=== PATIENT | female | born 1945 | race Caucasian/White ===

== ENCOUNTER 2017-12-22 12:41 | Emergency (ER) | payer MEDICARE, OTHER ==
[~2017-12-22] VITALS: Ht 152.4 cm; Wt 60.8 kg
[~2017-12-22 12:41] MED LIST: ATEN25TA PO; ROSU40TA PO; VALS320T2 PO
[2017-12-22 13:00] VITALS: BP 159/87
[2017-12-22] MEDS ORDERED: MUPIROCIN OINT 2% 22 GM TUBE TP ONE (14:00)
[2017-12-22] MEDS ORDERED: MUPIROCIN OINT 2% 22 GM TUBE ONE (14:06)
== END 2017-12-22 14:32 | disposition home or self-care (01) ==
LOC: ER 12:43
DX: S10.96XA Insect bite of unspecified part of neck, initial encounter (principal); L08.9 Local infection of the skin and subcutaneous tissue, unspecified; I10 Essential (primary) hypertension; E78.00 Pure hypercholesterolemia, unspecified; Z88.0 Allergy status to penicillin; W57.XXXA Bitten or stung by nonvenomous insect and other nonvenomous arthropods, initial encounter; Y93.89 Activity, other specified; Y92.89 Other specified places as the place of occurrence of the external cause; Y99.8 Other external cause status
CPT/HCPCS: A4606; Z7610

== ENCOUNTER 2018-07-09 13:08 | Inpatient (IN) | payer MEDICARE, OTHER ==
[~2018-07-09] VITALS: Ht 149.9 cm; Wt 53.5 kg
--- NOTE | 2018-07-09 13:17 | NUR ---
PT BIB SELF CHEST PAIN X 18 HRS NON RADIATING , NON PROVOKED SHARP, PT IS AAOX4, NOT IN RESPIRATORY DISTRESS, V/S STABLE, HOOKED TO MONITOR, KEPT RESTED AND COMFORTABLE.
--- NOTE | 2018-07-09 13:20 | NUR ---
PT LABS DRAWNED AND SENT TO LAB, EKG DONE.
--- NOTE | 2018-07-09 13:43 | NUR ---
RADIOLOGY AT BEDSIDE FOR XRAY.
[2018-07-09 13:48] LABS: BASOPHILS # (AUTO) 0.1 /CMM (0.0-0.2); BASOPHILS % (AUTO) 1.2 % (0.0-2.0); EOSINOPHILS % (AUTO) 2.4 % (0.0-6.0); HEMATOCRIT 41 % (33-45); LYMPHOCYTES # (AUTO) 1.7 /CMM (0.8-4.8); LYMPHOCYTES % (AUTO) 27.4 % (20.0-44.0); MEAN CORPUSCULAR HGB CONC 34 g/dl (31.0-36.0); MEAN CORPUSCULAR VOLUME 89 fL (82-100); MONOCYTES # (AUTO) 0.5 /CMM (0.1-1.30); NEUTROPHILS # (AUTO) 3.8 /CMM (1.8-8.9); PLATELET COUNT (AUTO) 216 /CMM (150-450); RED BLOOD CELL COUNT(AUTO) 4.62 MIL/uL (4.0-5.2); WHITE BLOOD COUNT (AUTO) 6.2 K/uL (4.3-11.0)
[2018-07-09 13:53] LABS: CALCIUM, SERUM 9.6 mg/dL (8.5-10.1); CARBON DIOXIDE 26 mmol/L (21-32); CHLORIDE 100 mmol/L (98-107); CREATININE 0.7 mg/dL (0.6-1.3); GLUCOSE 147 mg/dL (74-106); POTASSIUM 3.4 mmol/L (3.5-5.1); SODIUM SERUM 139 mmol/L (136-145); UREA NITROGEN, BLOOD 17 mg/dL (7-18)
[2018-07-09] MEDS ORDERED: NITROGLYCERIN 0.4 MG/TAB BOTTLE ONE (14:27)
--- NOTE | 2018-07-09 14:28 | NUR ---
CALLED NURSING SUP FOR TELE BED.
[2018-07-09] MEDS ORDERED: NITROGLYCERIN 0.4 MG/TAB BOTTLE SL ONE (14:30)
--- NOTE | 2018-07-09 14:56 | NUR ---
PT IS ASSIGNED TO #: [id number], DX: CHEST PAIN, AND ACCEPTING MD: DR NESBITT
[2018-07-09] MEDS ORDERED: MAGNESIUM HYDROXIDE 30 ML UDC PO PRN (15:00)
[2018-07-09] MEDS ORDERED: MAG HYDROX/AL HYDROX/SIMETH 30 ML UDC PO PRN (15:00)
[2018-07-09] MEDS ORDERED: ZOLPIDEM TARTRATE 5 MG TABLET PO PRN (15:00)
[2018-07-09] MEDS ORDERED: MORPHINE SULFATE INJ 2 MG/ML DISP.SYRIN IV PRN (15:00)
[2018-07-09] MEDS ORDERED: ACETAMINOPHEN 325 MG TABLET PO PRN (15:00)
[2018-07-09] MEDS ORDERED: HYDROCODONE/APAP 5/325MG 1 EACH TABLET PO PRN (15:00)
[2018-07-09] MEDS ORDERED: ONDANSETRON HCL/PF 4 MG/2 ML VIAL IVP PRN (15:00)
[2018-07-09] MEDS ORDERED: Z GUARD REMEDY 2 OZ OINT TP PRN (15:00)
[2018-07-09] MEDS ORDERED: NITROGLYCERIN 0.4 MG/TAB BOTTLE SL PRN (15:00)
--- NOTE | 2018-07-09 15:08 | NUR ---
REPORT GIVEN TO MARINA GONZALES FOR EMIL.
[2018-07-09] MEDS ORDERED: MORPHINE SULFATE INJ 4 MG/ML DISP.SYRIN IV PRN (15:12)
[2018-07-09 15:45] VITALS: BP 118/63
[2018-07-09 16:00] VITALS: BP 116/63
--- NOTE | 2018-07-09 16:35 | NUR ---
PLUMBING DESIGNER ADMITTING NOTES PATIENT ADMITTED TO UNIT @ 1520 VIA GURNEY ACCOMPANIED BY E.R NURSE LUIS MANUEL RAE. A/O X4. ABLE TO MAKE NEEDS KNOWN WITH NO C/O CHEST PAIN ON ADMISSION. PT IS AMBULATORY WITH DX OF CHEST PAIN. PT ORIENTED TO ROOM AND UNIT. ON ROOM AIR, BREATHING EVEN AND UNLABORED. V/S TAKEN AND RECORDED. HEAD TO TOE ASSESSMENT DONE. SKIN IS INTACT WITH MILD NON-PITTING EDEMA NOTED ON B/L FEET. IV ACCESS PRESENT RAC G# 20 INTACT AND PATENT, FLUSHES WELL. PT WITH CLEAR B/L LUNGS ON AUSCULTATION. ABDOMEN SOFT NON-TENDER AND NON-DISTENDED. PT PLACED ON TELEMONITORING WITH CURRENT READING OF SR WITH HR OF 78, NO C/O CARDIAC DISTRESS VOICED. SAFETY MEASURES INITIATED. BED PLACED IN LOW/LOCKED POSITION WITH SR UP X 2. CALL LIGHT WITHIN EASY REACH OF PT. WILL CONTINUE TO MONITOR PT ACCORDINGLY.
[2018-07-09] MEDS: ATENOLOL 25 MG TABLET PO SCH (16:57)
--- NOTE | 2018-07-09 18:30 | NUR ---
MACHINE PACKER CLOSING NOTES PATIENT IN BED AWAKE AND RESTING AT MODERATE HIGH BACKREST POSITION. A/O X4. ABLE TO MAKE NEEDS KNOWN, NO C/O CHEST PAIN VOICED SINCE ADMISSION. PT IS AMBULATORY AND TOLERATING ROOM AIR WITH NO ACUTE DISTRESS NOTED. ON TELE-MONITORING WITH CURRENT READING OF SINUS RHYTHM AND HR OF 82, NO C/O CARDIAC DISTRESS VOICED. IV ACCESS ON RAC G#20 INTACT AND PATENT, FLUSHES EASILY. ALL SAFETY MEASURES KEPT IN PLACE. BED IN LOW LOCKED POSITION WITH SR UP X2. CALL LIGHT WITHIN REACH. ALL NEEDS AND CARE ATTENDED WELL. WILL ENDORSE TO FILM FLAT INSPECTOR NURSE FOR EMIL.
--- NOTE | 2018-07-09 19:32 | NUR ---
PATIENT SCHEDULER OPENING NOTES: RECEIVED PT ON ROOM AIR AND IS TOLERATING WELL. PT A/OX4. NO SOB NOTED. NO S/S OF DISTRESS. PT ASKING FOR JELLO. PT SITTING UP IN BED. PT ON TELE BOX AND READING SHOWS SR 84. BED KEPT IN LOW, LOCKED POSITION, AND SIDE RAILS X 2UP. WILL CONTINUE TO MONITOR PT. Addendum: 07/09/18 at 1934 by FADI ZHANG RN IV REMAINS INTACT. CURRENTLY H/L.
[2018-07-09 20:00] VITALS: BP 121/64
--- NOTE | 2018-07-09 21:57 | NUR ---
SUPERINTENDENT DISTRIBUTION NOTES: EXPLAINED TO PT THE IMPORTANCE OF TAKING LIPITOR 80MG X3. PT STILL DOES NOT WANT TO TAKE IT. SHE SAID SHE CAN GO A DAY WITHOUT IT.
[2018-07-09] MEDS ORDERED: ATORVASTATIN 40 MG TABLET PO SCH (22:00)
[2018-07-10] VITALS: BP 128/71
[2018-07-10 04:00] VITALS: BP 127/64
--- NOTE | 2018-07-10 06:36 | NUR ---
IN SERVICE EDUCATOR CLOSING NOTES: ALL NEEDS WERE ATTENDED AND ANTICIPATED FOR. PT RESTING IN BED COMFORTABLY. NO SOB NOTED. NO S/S OF DISTRESS. NO COMPLAINTS OF PAIN. IV REMAINS INTACT. HAS BEEN FLUSHED AND IS CURRENTLY H/L. PT ON TELE BOX AND READING SHOWS SR 63. BED KEPT IN LOW, LOCKED POSITION, AND SIDE RAILS X 2UP. WILL ENDORSE TO AM NURSE FOR EMIL.
[2018-07-10 06:56] LABS: BASOPHILS # (AUTO) 0.1 /CMM (0.0-0.2); BASOPHILS % (AUTO) 1.1 % (0.0-2.0); EOSINOPHILS % (AUTO) 3.6 % (0.0-6.0); HEMATOCRIT 41 % (33-45); HEMOGLOBIN 13.9 g/dL (11.5-14.8); LYMPHOCYTES # (AUTO) 1.9 /CMM (0.8-4.8); LYMPHOCYTES % (AUTO) 27.7 % (20.0-44.0); MEAN CORPUSCULAR HGB CONC 34 g/dl (31.0-36.0); MEAN CORPUSCULAR VOLUME 90 fL (82-100); MONOCYTES # (AUTO) 0.6 /CMM (0.1-1.30); MONOCYTES % (AUTO) 9.1 % (2.0-12.0); NEUTROPHILS # (AUTO) 3.9 /CMM (1.8-8.9); NEUTROPHILS % (AUTO) 58.5 % (43.0-81.0); PLATELET COUNT (AUTO) 222 /CMM (150-450); RED BLOOD CELL COUNT(AUTO) 4.54 MIL/uL (4.0-5.2); WHITE BLOOD COUNT (AUTO) 6.7 K/uL (4.3-11.0)
--- NOTE | 2018-07-10 07:06 | NUR ---
FEATHER EDGER NOTES PATIENT IN BED EYES CLOSED, EASI TO AROUSE. RESPOND TO VERBAL AND TACTILE STIMULI. NO FACIAL GRIMACING NOTED. NO ACUTE DISTRESS NOTED. BREATHING UNLABORED. NO SOB NOTED. IV ACCESS PATENT AND INTACT, NO REDNESS OR SWELLING NOTED. SAFETY MEASURES IN PLACE. CALL LIGHT WITHIN REACH. WILL CONTINUE TO MONITOR ACCORDINGLY.
[2018-07-10 07:09] LABS: CALCIUM, SERUM 9.6 mg/dL (8.5-10.1); CARBON DIOXIDE 31 mmol/L (21-32); CHLORIDE 102 mmol/L (98-107); CREATININE 0.7 mg/dL (0.6-1.3); GLUCOSE 145 mg/dL (74-106); MAGNESIUM 2.2 mg/dL (1.8-2.4); PHOSPHORUS 4.4 mg/dL (2.5-4.9); POTASSIUM 3.3 mmol/L (3.5-5.1); SODIUM SERUM 141 mmol/L (136-145); UREA NITROGEN, BLOOD 18 mg/dL (7-18)
[2018-07-10 07:20] LABS: CHOLESTEROL 251 mg/dL (<200); HDL CHOLESTEROL 30 mg/dL (40-60); LDL 174 mg/dL (0-99); THYROID STIMULATING HORMONE 3.329 uIU/mL (0.358-3.74); TRIGLYCERIDES 297 mg/dL (30-150)
[2018-07-10 08:00] VITALS: BP 118/51
[2018-07-10] MEDS ORDERED: VALSARTAN 80 MG TABLET PO SCH (09:00)
[2018-07-10] MEDS ORDERED: ASPIRIN EC 81 MG TABLET.DR PO SCH (09:00)
[2018-07-10 09:57] VITALS: BP 120/54
[2018-07-10] MEDS: ATENOLOL 25 MG TABLET PO SCH (09:57)
[2018-07-10] MEDS ORDERED: POTASSIUM CHLORIDE 20 MEQ TAB.PRT.SR PO SCH (10:30)
[2018-07-10] MEDS ORDERED: EZETIMIBE 10 MG TABLET PO SCH (11:13)
--- NOTE | 2018-07-10 13:26 | NUR ---
MS RN NOTES SEEN AND EVALUATED BY DR NBA NESBITT WITH NEW ORDERS MADE, NOTED AND CARRIED OUT.
[2018-07-10] MEDS ORDERED: EZET10TA13 PO (13:27)
[2018-07-10] MEDS ORDERED: Nitroglycerin SL (13:27)
--- NOTE | 2018-07-10 15:20 | NUR ---
MS RN NOTES PATIENT DISCHARGE HOME WITH STABLE VITAL SIGNS, NO ACUTE DISTRESS NOTED. BREATHING UNLABORED. DENIED ANY PAIN. DISCHARGE INSTRUCTIONS GIVEN TO THE PATIENT INCLUDING FOLLOW UP WITH PRIMARY DOCTOR AND BENEFITS REPRESENTATIVE IN 1 WEEK, VERBALIZED UNDERSTANDING. ALL BELONGINGS ACCOUNTED FOR. IV ACCESS REMOVED, NO BLEEDING, NO REDNESS OR SWELLING NOTED. SKIN IS INTACT. WHEELED TO THE LOBBY, ASSISTED TO A PRIVATE CAR IN STABLE CONDITION.
== END 2018-07-10 15:15 | disposition home or self-care (01) | DRG 313 ==
LOC: ER 13:09 → TELE 14:59 → MED 07-10 14:26
DX: R07.89 Other chest pain (principal); E87.6 Hypokalemia; E11.9 Type 2 diabetes mellitus without complications; I10 Essential (primary) hypertension; E78.5 Hyperlipidemia, unspecified; F32.9 Major depressive disorder, single episode, unspecified; Z88.0 Allergy status to penicillin
CPT/HCPCS: 36415; 71045-TC; 80048-TC; 80061-TC; 83735-TC; 83880; 84100-TC; 84443-TC; 84484-TC; 85025-TC; 85730-TC; 87081-TC; 93307-TC; G0378

== ENCOUNTER 2018-10-15 12:13 | Emergency (ER) | payer MEDICARE, MEDICAID ==
[~2018-10-15] VITALS: Ht 149.9 cm; Wt 60.3 kg
[~2018-10-15 12:13] MED LIST changes: +EZET10TA13 PO; +Nitroglycerin SL
--- NOTE | 2018-10-15 12:15 | NUR ---
BIB SELF W C/O ABD SHARP PAIN MOSTLY ON THE LLQ, SINCE LAST NIGHT, TO ER BED 3, HOOKED TO MONITOR, CHANGED TO GOWN, PROVIDED W WARM BLANKET, AWAITING MD QUEVEDO.
--- NOTE | 2018-10-15 12:38 | NUR ---
DR JUAREZ AT BEDSIDE
[2018-10-15 12:48] LABS: APPEARANCE,URINE Clear (CLEAR); BILIRUBIN,URINE Negative (NEGATIVE); BLOOD, URINE Negative Ery/uL (NEGATIVE); COLOR,URINE Yellow (YELLOW); KETONES,URINE Negative (NEGATIVE); LEUKOCYTE ESTERASE ,URINE Negative (NEGATIVE); NITRITE, URINE Negative (NEGATIVE); PROTEIN,URINE Negative (NEGATIVE); UGLUCOSE 500 MG/DL mg/dL (NEGATIVE); UROBILINOGEN,URINE 0.2 EU/dL (0.2)
[2018-10-15 12:53] LABS: BASOPHILS % (AUTO) 0.5 % (0.0-2.0); EOSINOPHILS % (AUTO) 0.9 % (0.0-6.0); HEMATOCRIT 38 % (33-45); LYMPHOCYTES # (AUTO) 1.4 /CMM (0.8-4.8); LYMPHOCYTES % (AUTO) 25.5 % (20.0-44.0); MEAN CORPUSCULAR HGB CONC 34 g/dl (31.0-36.0); MEAN CORPUSCULAR VOLUME 89 fL (82-100); MONOCYTES # (AUTO) 0.5 /CMM (0.1-1.30); NEUTROPHILS # (AUTO) 3.5 /CMM (1.8-8.9); NEUTROPHILS % (AUTO) 64.1 % (43.0-81.0); PLATELET COUNT (AUTO) 187 /CMM (150-450); WHITE BLOOD COUNT (AUTO) 5.5 K/uL (4.3-11.0)
[2018-10-15] MEDS ORDERED: IV NS 0.9% 1,000 ML BAG IV ONE (13:00)
[2018-10-15 13:01] LABS: CALCIUM, SERUM 9.3 mg/dL (8.5-10.1); CARBON DIOXIDE 30 mmol/L (21-32); CHLORIDE 104 mmol/L (98-107); CREATININE 0.8 mg/dL (0.6-1.3); GLUCOSE 194 mg/dL (74-106); POTASSIUM 3.3 mmol/L (3.5-5.1); SODIUM SERUM 139 mmol/L (136-145); UREA NITROGEN, BLOOD 19 mg/dL (7-18)
[2018-10-15 13:06] LABS: ALANINE AMINOTRANSFERASE 87 U/L (12-78); ALBUMIN 3.5 g/dL (3.4-5.0); ALKALINE PHOSPHATASE 118 U/L (46-116); ASPARTATE AMINOTRANSFERASE 58 U/L (15-37); BILIRUBIN,DIRECT 0.1 mg/dL (0.0-0.2); BILIRUBIN,TOTAL 0.2 mg/dL (0.2-1.0); LIPASE 324 U/L (73-393); TOTAL PROTEIN, SERUM 7.9 g/dL (6.4-8.2)
--- NOTE | 2018-10-15 13:09 | NUR ---
PT WHEELED OUT VIA [email or web address] FOR CT SCAN.
--- NOTE | 2018-10-15 14:00 | NUR ---
PT WOULD LIKE TO FINISH IV NS.
--- NOTE | 2018-10-15 14:55 | NUR ---
IV removed. Catheter intact and site benign. Pressure and 4x4 applied to site. No bleeding noted.Patient discharged to home in stable condition. Written and verbal after care instructions given. Patient verbalizes understanding of instruction.
[2018-10-15 15:03] VITALS: BP 145/76
== END 2018-10-15 15:04 | disposition home or self-care (01) ==
LOC: ER 12:20
DX: K57.92 Diverticulitis of intestine, part unspecified, without perforation or abscess without bleeding (principal); I10 Essential (primary) hypertension; E11.9 Type 2 diabetes mellitus without complications; Z88.0 Allergy status to penicillin; Z88.1 Allergy status to other antibiotic agents; Z79.899 Other long term (current) drug therapy
CPT/HCPCS: 36415; 74176; 80048; 80076; 81001; 83690; 85025; 99284; J7030; 81000-TC

== ENCOUNTER 2020-03-13 15:07 | Emergency (ER) | payer MEDICARE, MEDICAID ==
[~2020-03-13] VITALS: Ht 149.9 cm; Wt 61.2 kg
[2020-03-13 15:07] VITALS: BP 158/83
[~2020-03-13 15:07] MED LIST changes: -EZET10TA13 PO; +EZET10TA15 PO
--- NOTE | 2020-03-13 15:34 | NUR ---
PT SEEN AND EXAMINED BY .
[2020-03-13] MEDS ORDERED: VALACYCLOVIR HCL 500 MG TABLET ONE (15:46)
[2020-03-13] MEDS ORDERED: predniSONE 20 MG TABLET ONE (15:46)
[2020-03-13] MEDS ORDERED: HYDROCODONE/APAP 5/325MG TABLET ONE (15:46)
[2020-03-13] MEDS: VALACYCLOVIR HCL 500 MG TABLET PO ONE (15:52)
[2020-03-13] MEDS: predniSONE 20 MG TABLET PO ONE (15:52)
[2020-03-13] MEDS: HYDROCODONE/APAP 5/325MG TABLET PO ONE (15:52)
--- NOTE | 2020-03-13 16:00 | NUR ---
Patient discharged to home in stable condition. Written and verbal after care instructions given. Patient verbalizes understanding of instruction.
== END 2020-03-13 16:01 | disposition home or self-care (01) ==
LOC: ER 15:13
DX: B02.9 Zoster without complications (principal); I10 Essential (primary) hypertension; E11.9 Type 2 diabetes mellitus without complications; Z88.0 Allergy status to penicillin; Z88.1 Allergy status to other antibiotic agents; Z60.2 Problems related to living alone; Z79.899 Other long term (current) drug therapy
CPT/HCPCS: 99284; J7512

== ENCOUNTER 2020-04-10 11:35 | Inpatient (IN) | payer MEDICARE, OTHER ==
[~2020-04-10] VITALS: Ht 149.9 cm; Wt 59.4 kg
[2020-04-10 12:13] LABS: APPEARANCE,URINE Clear (CLEAR); BILIRUBIN,URINE SMALL (NEGATIVE); BLOOD, URINE Negative Ery/uL (NEGATIVE); COLOR,URINE Yellow (YELLOW); KETONES,URINE Negative (NEGATIVE); LEUKOCYTE ESTERASE ,URINE Negative (NEGATIVE); NITRITE, URINE Negative (NEGATIVE); PH,URINE 5.5 (5.0-8.0); PROTEIN,URINE 30 mg/dl (NEGATIVE); UGLUCOSE Negative (NEGATIVE); UROBILINOGEN,URINE 0.2 EU/dL (0.2)
[2020-04-10 12:19] LABS: BACTERIA,URINE Few /HPF (None Seen); RBC,URINE 0-2 /HPF (0-2); SQUAMOUS EPITHELIAL CELL,UR Few /HPF (None Seen); WBC,URINE 0-2 /HPF (0-3)
[2020-04-10] MEDS ORDERED: GLIM1TAB18 PO (12:20)
[2020-04-10] MEDS ORDERED: DOCU100T PO (12:20)
[2020-04-10] MEDS ORDERED: METF-440 PO (12:20)
[2020-04-10] MEDS ORDERED: ICOS1CAP PO (12:20)
[2020-04-10] MEDS ORDERED: AMLO5TAB9 PO (12:20)
[2020-04-10] MEDS ORDERED: ERGO500040 PO (12:20)
[2020-04-10] MEDS ORDERED: MECL-159 PO (12:20)
[2020-04-10] MEDS ORDERED: NEBI10TA2 PO (12:20)
[2020-04-10] MEDS ORDERED: FENOFIBRATE PO (12:20)
[2020-04-10] MEDS ORDERED: OLME1TAB22 PO (12:20)
[2020-04-10] MEDS ORDERED: ASPI-1420 PO (12:20)
[2020-04-10] MEDS ORDERED: CLON0.1T PO (12:20)
[2020-04-10] MEDS ORDERED: DEXL60CA3 PO (12:20)
[2020-04-10] MEDS ORDERED: IV NS 0.9% 500 ML BAG IV ONE (12:30)
[2020-04-10] MEDS ORDERED: PIPERACILLIN /TAZOBACTAM 3.375 G in IV D5W 50 ML IV ONE (12:30)
[2020-04-10 12:43] LABS: BASOPHILS # (AUTO) 0.1 /CMM (0.0-0.2); BASOPHILS % (AUTO) 1.4 % (0.0-2.0); EOSINOPHILS % (AUTO) 3.3 % (0.0-6.0); HEMATOCRIT 37 % (33-45); HEMOGLOBIN 12.3 g/dL (11.5-14.8); LYMPHOCYTES # (AUTO) 1.3 /CMM (0.8-4.8); LYMPHOCYTES % (AUTO) 20.4 % (20.0-44.0); MEAN CORPUSCULAR HGB CONC 34 g/dl (31.0-36.0); MEAN CORPUSCULAR VOLUME 91 fL (82-100); MONOCYTES # (AUTO) 0.5 /CMM (0.1-1.30); NEUTROPHILS # (AUTO) 4.3 /CMM (1.8-8.9); NEUTROPHILS % (AUTO) 66.9 % (43.0-81.0); PLATELET COUNT (AUTO) 206 /CMM (150-450); RED BLOOD CELL COUNT(AUTO) 4.03 MIL/uL (4.0-5.2); WHITE BLOOD COUNT (AUTO) 6.4 K/uL (4.3-11.0)
[2020-04-10 12:50] LABS: CALCIUM, SERUM 9.1 mg/dL (8.5-10.1); CREATININE 0.9 mg/dL (0.6-1.3); POTASSIUM 3.4 mmol/L (3.5-5.1)
[2020-04-10 12:56] LABS: ALBUMIN 3.3 g/dL (3.4-5.0); BILIRUBIN,DIRECT 0.1 mg/dL (0.0-0.2); BILIRUBIN,TOTAL 0.5 mg/dL (0.2-1.0); TOTAL PROTEIN, SERUM 7.8 g/dL (6.4-8.2)
[2020-04-10] MEDS ORDERED: INSULIN REGULAR, HUMAN 100 UNIT/ML 3 ML VIAL SQ PRN (14:30)
[2020-04-10] MEDS ORDERED: IV NS 0.9% 1,000 ML IV PRN (14:30)
[2020-04-10] MEDS ORDERED: *INSULIN REGULAR(HUMULIN R)HUM 100 UNIT/ML VIAL SQ PRN (14:30)
[2020-04-10] MEDS ORDERED: MAG HYDROX/AL HYDROX/SIMETH 30 ML UDC PO PRN (14:30)
[2020-04-10] MEDS ORDERED: MORPHINE SULFATE INJ 2 MG/ML DISP.SYRIN IV PRN (14:30)
[2020-04-10] MEDS ORDERED: ONDANSETRON HCL/PF 4 MG/2 ML VIAL IVP PRN (14:30)
[2020-04-10] MEDS ORDERED: ACETAMINOPHEN 325 MG TABLET PO PRN (14:30)
[2020-04-10] MEDS ORDERED: Z GUARD REMEDY 2 OZ OINT TP PRN (14:30)
[2020-04-10] MEDS ORDERED: HYDROCODONE/APAP 5/325MG TABLET PO PRN (14:30)
[2020-04-10] MEDS ORDERED: MAGNESIUM HYDROXIDE 30 ML UDC PO PRN (14:30)
[2020-04-10] MEDS ORDERED: DEXTROSE 50%-WATER 50 ML DISP.SYRIN IV PRN (14:30)
[2020-04-10] MEDS ORDERED: CLONIDINE HCL 0.1 MG TABLET PO PRN (14:30)
--- NOTE | 2020-04-10 14:46 | NUR ---
Covid swab obtained and send to lab
--- NOTE | 2020-04-10 15:32 | NUR ---
Patient awake alert non distress noted no nausea and vomit continue to monitor .
[2020-04-10] MEDS ORDERED: PIPERACILLIN /TAZOBACTAM 3.375 G in IV D5W 100 ML IV SCH (18:00)
--- NOTE | 2020-04-10 18:20 | NUR ---
PT GOING TO ROOM 117-[address] [facility]
--- NOTE | 2020-04-10 18:40 | NUR ---
Late entry allergy to penicillin patient stated had skin rash years ago patient recieved Zozyn no skin rash noted vitals with in normal limits
--- NOTE | 2020-04-10 18:46 | NUR ---
Report given to Jorge L Swift 117
--- NOTE | 2020-04-10 19:00 | NUR ---
RN ADMITTING NOTES: RECEIVED PATIENT FROM ER VIA [facility]; ADMITTING DIAGNOSIS DIVERTICULITIS; RESULTS PENDING. PATIENT AWAKE, ALERT AND ORIENTED X4. TAMAZIGHT SPEAKING. COPLAINTS OF PAIN 2-3/10 IN NO S/SX OF ACUTE DISTRESS AT THIS TIME. NO SOB NOTED. PATIENT'S BREATHING IS EVEN AND UNLABORED. PATIENT IS ON ROOM AIR; TOLERATING WELL.SATURATING 98% AT THE MOMENT. PATIENT ON MS STATUS NOTED IV SITE ON R AC#20 ,FLUSHING AND PATENT , SALINE LOCKED. NO S/S OF INFECTION OR INFILTRATION. PATIENT AMBULATORY SKIN IS INTACT AND NO SKIN BREAKDOWN OR WOUNDS. PATIENT KEPT CLEAN , DRY AND COMFORTABLE.SAFETY MEASURES HAVE BEEN PROVIDED AND IMPLEMENTED. PATIENT BED ALARM IS ON. HEAD OF BED ELEVATED. BED IS LOCKED, IN LOWEST POSITION AND SIDE RAILS UP. CALL LIGHT WITHIN REACH OF THE PATIENT. APPROPRIATE PRECAUTIONS IN PLACE. WILL CONTINUE TO MONITOR AND REASSESS FOR ANY CHANGES. WILL ATTEND TO ALL MD ADMITTING ORDERS.
[2020-04-10 20:00] VITALS: BP 158/72
[2020-04-10] MEDS ORDERED: LEVOFLOXACIN 500 MG /D5W 100ML 100 ML IV ONE (20:55)
[2020-04-10] MEDS ORDERED: LEVOFLOXACIN 500 MG /D5W 100ML 500 MG in PREMIX 1 EA IV SCH (21:00)
[2020-04-10] MEDS: BLOOD SUGAR DIAGNOSTIC 1 EACH STRIP VI SCH (22:00)
--- NOTE | 2020-04-10 22:00 | NUR ---
RN NOTES NO NOTED CHANGES TO PATIENT CONDITION/STATUS. INVENTORY SPECIALIST MADE AWARE. WILL CONTINUE TO MONITOR AND REASSESS FOR ANY CHANGES THROUGHOUT THE SHIFT.
--- NOTE | 2020-04-10 22:00 | NUR ---
MARINA NOTES ACCU CHECK DONE ; BLOOD SUGAR @88MG/DL- NO COVERAGE PER SLIDING SCALE Addendum: 04/10/20 at 2312 by CATHERINE DENG RN SUPERVISOR CORRESPONDENCE SECTION MADE AWARE
--- NOTE | 2020-04-11 02:00 | NUR ---
RN NOTES NO NOTED CHANGES TO PATIENT CONDITION/STATUS. AUTOMATIC TELLER MACHINE SERVICER MADE AWARE. WILL CONTINUE TO MONITOR AND REASSESS FOR ANY CHANGES THROUGHOUT THE SHIFT.
[2020-04-11 04:00] VITALS: BP 142/73
--- NOTE | 2020-04-11 04:00 | NUR ---
RN NOTES NO NOTED CHANGES TO PATIENT CONDITION/STATUS. NETWORKS COMPUTER CONSULTANT MADE AWARE. WILL CONTINUE TO MONITOR AND REASSESS FOR ANY CHANGES THROUGHOUT THE SHIFT.
[2020-04-11 06:42] LABS: BASOPHILS # (AUTO) 0.1 /CMM (0.0-0.2); BASOPHILS % (AUTO) 0.9 % (0.0-2.0); HEMATOCRIT 34 % (33-45); HEMOGLOBIN 11.8 g/dL (11.5-14.8); LYMPHOCYTES # (AUTO) 1.6 /CMM (0.8-4.8); LYMPHOCYTES % (AUTO) 27.2 % (20.0-44.0); MEAN CORPUSCULAR HGB CONC 35 g/dl (31.0-36.0); MEAN CORPUSCULAR VOLUME 89 fL (82-100); MONOCYTES # (AUTO) 0.5 /CMM (0.1-1.30); NEUTROPHILS # (AUTO) 3.6 /CMM (1.8-8.9); NEUTROPHILS % (AUTO) 59.9 % (43.0-81.0); PLATELET COUNT (AUTO) 198 /CMM (150-450); RED BLOOD CELL COUNT(AUTO) 3.84 MIL/uL (4.0-5.2)
--- NOTE | 2020-04-11 06:48 | NUR ---
RN CLOSING NOTES PATIENT REMAINS IN ROOM IN NO SIGNS OF RESPIRATORY DISTRESS. PATIENT SATURATING 94% OF 02 AT ROOM AIR. STABLE VITAL SIGNS. IV LINE MAINTAINED, INTACT, PATENT AND FLUSHING, NO SITE REDNESS OR INFILTRATION, WITH RUNNING IV FLUID ORDERED. SAFETY PRECAUTIONS IN PLACE AND COMFORT MEASURES RENDERED. BED IN LOWEST POSITION, CALL LIGHT WITHIN REACH, BREAKS ON, SIDE RAILS UP. ALL NEEDS ATTENDED, M ; SHIFT ASSESSMENT/BEDBATH/SKIN CARE DONE. PATIENT KEPT CLEAN AND DRY. WILL ENDORSE TO INCOMING SHIFT FOR EMIL WITH ALL PERTINENT INFO REGARDING PATIENT STATUS.
[2020-04-11 06:56] LABS: CALCIUM, SERUM 9.1 mg/dL (8.5-10.1); CARBON DIOXIDE 30 mmol/L (21-32); CHLORIDE 102 mmol/L (98-107); CREATININE 0.7 mg/dL (0.6-1.3); GLUCOSE 93 mg/dL (74-106); MAGNESIUM 1.7 mg/dL (1.8-2.4); PHOSPHORUS 2.9 mg/dL (2.5-4.9); SODIUM SERUM 141 mmol/L (136-145); UREA NITROGEN, BLOOD 13 mg/dL (7-18)
--- NOTE | 2020-04-11 07:55 | NUR ---
RN OPEN NOTES PATIENT IS SLEEPING IN BED WITH NO SIGNS OF DISTRESS IN ROOM. IV ON R AC#20G INTACT INFUSING NS AT 75 ML/HR. NO COMPLAIN OF PAIN AT THIS TIME. SAFETY MEASURES ARE APPLIED, BED IS LOW AND LOCKED. SIDE RAILS UP X 2 FOR SAFETY. CALL LIGHT WITHIN REACH. WILL CONTINUE TO MONITOR.
[2020-04-11 08:00] VITALS: BP 153/78
[2020-04-11] MEDS: POTASSIUM CL. PREMIX PERIPHER. 50 ML IV SCH ×2 (08:59→10:12)
[2020-04-11] MEDS ORDERED: ASPIRIN EC 81 MG TABLET.DR PO SCH (09:00)
[2020-04-11] MEDS ORDERED: PANTOPRAZOLE 40 MG VIAL IV SCH (09:00)
[2020-04-11] MEDS ORDERED: AMLODIPINE BESYLATE 5 MG TABLET PO SCH (09:00)
[2020-04-11] MEDS ORDERED: METOPROLOL TARTRATE 50 MG TABLET PO SCH (09:00)
[2020-04-11] MEDS: BLOOD SUGAR DIAGNOSTIC 1 EACH STRIP VI SCH ×2 (09:25→12:27)
[2020-04-11] MEDS: Magnesium 1GM/D5W 100ML PREMIX 100 ML IV SCH ×2 (10:12→12:28)
[2020-04-11] MEDS ORDERED: POTASSIUM CHLORIDE 10 MEQ TABLET.SA PO ONE (11:00)
[2020-04-11 12:00] VITALS: BP 153/78
[2020-04-11] MEDS ORDERED: LEVO500T90 PO (13:24)
--- NOTE | 2020-04-11 15:28 | NUR ---
DISCHARGE NOTES PATIENT VITAL SIGNS ARE WITHIN NORMAL LIMIT, NO COMPLAIN OF PAIN. DISCHARGE INSTRUCTIONS WERE GIVEN AND PATIENT VERBALIZE UNDERSTANDING. IV REMOVED WITH NO SIGNS OF BLEEDING. BELONGING LIST COMPLETED AND SIGNED. PATIENT LEFT TO THE LOBBY VIA WHEELCHAIR BY DATA COMPILER WITH NO COMPLICATIONS.
== END 2020-04-11 15:28 | disposition home or self-care (01) | DRG 391 ==
LOC: ER 11:43 → MEDSG1 17:29
PROVIDERS: ADMIT Internal Medicine; ATTEND Internal Medicine
DX: K57.20 Diverticulitis of large intestine with perforation and abscess without bleeding (principal); K65.9 Peritonitis, unspecified; E43 Unspecified severe protein-calorie malnutrition; E87.6 Hypokalemia; E88.09 Other disorders of plasma-protein metabolism, not elsewhere classified; Z68.26 Body mass index [BMI] 26.0-26.9, adult; E11.9 Type 2 diabetes mellitus without complications; E78.5 Hyperlipidemia, unspecified; I10 Essential (primary) hypertension; Z88.0 Allergy status to penicillin
CPT/HCPCS: 36415; 80048-TC; 80076-TC; 81000-TC; 82962-TC; 83690-TC; 83735-TC; 84100-TC; 85025-TC; 87081-TC; A4216; C9113; C9803-CS; G0378; J1815; J1956; J2543; J3475; J3480; J7030; J7050; J7060

== ENCOUNTER 2023-05-29 12:10 | Emergency (ER) | payer MEDICARE, OTHER ==
[~2023-05-29] VITALS: Ht 149.9 cm; Wt 56.7 kg
[~2023-05-29 12:10] MED LIST changes: +AMLO-212 PO; +ASPI-1420 PO; -ATEN25TA PO; +CLON0.1T PO; +DEXL60CA3 PO; +DOCU100T28 PO; +ERGO500040 PO; -EZET10TA15 PO; +FENOFIBRATE PO; +GLIM1TAB18 PO; +ICOS1CAP PO; +LEVO500T90 PO; +MECL-159 PO; +METF-440 PO; +NEBI10TA2 PO; -Nitroglycerin SL; +OLME1TAB22 PO; -VALS320T2 PO
[2023-05-29] MEDS ORDERED: KETOROLAC TROMETHAMINE 15 MG/ML VIAL IV ONE (13:00)
[2023-05-29] MEDS ORDERED: KETOROLAC TROMETHAMINE 15 MG/ML VIAL ONE (13:01)
[2023-05-29 13:15] LABS: BASOPHILS # (AUTO) 0.1 K/uL (0.0-0.2); BASOPHILS % (AUTO) 0.6 % (0.0-2.0); EOSINOPHILS # (AUTO) 0.3 K/uL (0.0-0.7); HEMATOCRIT 34 % (33-45); HEMOGLOBIN 11.3 g/dL (11.5-14.8); LYMPHOCYTES # (AUTO) 1.2 K/uL (0.8-4.8); LYMPHOCYTES % (AUTO) 12.5 % (20.0-44.0); MEAN CORPUSCULAR HEMOGLOBIN 30 PG (26.0-33.0); MEAN CORPUSCULAR HGB CONC 33 g/dl (31.0-36.0); MEAN CORPUSCULAR VOLUME 89 fL (82-100); MONOCYTES # (AUTO) 0.6 K/uL (0.1-1.30); MONOCYTES % (AUTO) 6.1 % (2.0-12.0); NEUTROPHILS # (AUTO) 7.5 K/uL (1.8-8.9); NEUTROPHILS % (AUTO) 77.8 % (43.0-81.0); PLATELET COUNT (AUTO) 189 K/uL (150-450); RED CELL DISTRIBUTION WIDTH 14.5 % (11.5-15.0); WHITE BLOOD COUNT (AUTO) 9.6 K/uL (4.3-11.0)
[2023-05-29 13:29] LABS: CALCIUM, SERUM 9.3 mg/dL (8.5-10.1); CARBON DIOXIDE 28 mmol/L (21-32); CHLORIDE 97 mmol/L (98-107); CREATININE 1.4 mg/dL (0.6-1.3); GLUCOSE 314 mg/dL (74-106); POTASSIUM 3.2 mmol/L (3.5-5.1); SODIUM SERUM 136 mmol/L (136-145); UREA NITROGEN, BLOOD 22 mg/dL (7-18)
[2023-05-29 13:40] LABS: LACTIC ACID 2.3 mmol/L (0.4-2.0)
[2023-05-29 13:45] LABS: ALANINE AMINOTRANSFERASE 39 U/L (12-78); ALBUMIN 3.6 g/dL (3.4-5.0); ALKALINE PHOSPHATASE 64 U/L (46-116); ASPARTATE AMINOTRANSFERASE 20 U/L (15-37); BILIRUBIN,DIRECT 0.1 mg/dL (0.0-0.2); BILIRUBIN,TOTAL 0.5 mg/dL (0.2-1.0); LIPASE 107 U/L (16-77); TOTAL PROTEIN, SERUM 7.8 g/dL (6.4-8.2)
[2023-05-29] MEDS ORDERED: IV NS 0.9% 1,000 ML BAG IV ONE (14:00)
[2023-05-29] MEDS ORDERED: METR500T PO (14:30)
[2023-05-29] MEDS ORDERED: CIPR500T5 PO (14:30)
[2023-05-29] MEDS ORDERED: KETO10TA2 PO (14:31)
[2023-05-29 14:50] VITALS: BP 128/69; TEMP 98.1; O2SAT 99
== END 2023-05-29 14:50 | disposition home or self-care (01) ==
LOC: ER 12:36
DX: K57.32 Diverticulitis of large intestine without perforation or abscess without bleeding (principal); R10.30 Lower abdominal pain, unspecified; I10 Essential (primary) hypertension; E11.9 Type 2 diabetes mellitus without complications; Z88.0 Allergy status to penicillin; Z60.2 Problems related to living alone; Z79.84 Long term (current) use of oral hypoglycemic drugs; Z79.899 Other long term (current) drug therapy
CPT/HCPCS: 99285; 74177; 96374; 96361; 85025; 80048; 83605; 83690; 80076; 36415; J7030; J7050; Q9967; J1885

== ENCOUNTER 2023-12-02 14:35 | Emergency (ER) | payer MEDICARE, OTHER ==
[~2023-12-02] VITALS: Ht 149.9 cm; Wt 57.2 kg
[~2023-12-02 14:35] MED LIST changes: +CIPR500T5 PO; +KETO10TA2 PO; +METR500T PO
[2023-12-02 15:52] LABS: BASOPHILS # (AUTO) 0.2 K/uL (0.0-0.2); LYMPHOCYTES # (AUTO) 2.2 K/uL (0.8-4.8); MONOCYTES # (AUTO) 0.5 K/uL (0.1-1.30); NEUTROPHILS # (AUTO) 4.1 K/uL (1.8-8.9); WHITE BLOOD COUNT (AUTO) 7.5 K/uL (4.3-11.0)
[2023-12-02 15:55] LABS: BASOPHILS % (AUTO) 2.2 % (0.0-2.0); EOSINOPHILS # (AUTO) 0.6 K/uL (0.0-0.7); EOSINOPHILS % (AUTO) 7.4 % (0.0-6.0); HEMATOCRIT 38 % (33-45); HEMOGLOBIN 12.7 g/dL (11.5-14.8); LYMPHOCYTES % (AUTO) 28.7 % (20.0-44.0); MEAN CORPUSCULAR HEMOGLOBIN 30 PG (26.0-33.0); MEAN CORPUSCULAR HGB CONC 34 g/dl (31.0-36.0); MEAN CORPUSCULAR VOLUME 88 fL (82-100); MONOCYTES % (AUTO) 6.9 % (2.0-12.0); NEUTROPHILS % (AUTO) 54.8 % (43.0-81.0); PLATELET COUNT (AUTO) 230 K/uL (150-450); RED BLOOD CELL COUNT(AUTO) 4.31 MIL/uL (4.0-5.2); RED CELL DISTRIBUTION WIDTH 13.9 % (11.5-15.0)
[2023-12-02 15:57] LABS: CARBON DIOXIDE 28 mmol/L (21-32); CHLORIDE 102 mmol/L (98-107); CREATININE 0.9 mg/dL (0.6-1.3); GLUCOSE 87 mg/dL (74-106); POTASSIUM 3.9 mmol/L (3.5-5.1); SODIUM SERUM 140 mmol/L (136-145); UREA NITROGEN, BLOOD 24 mg/dL (7-18)
[2023-12-02 16:03] LABS: CALCIUM, SERUM 9.4 mg/dL (8.5-10.1)
[2023-12-02 18:02] VITALS: BP 132/70; TEMP 98; O2SAT 98
== END 2023-12-02 18:03 | disposition home or self-care (01) ==
LOC: ER 14:43
DX: M79.605 Pain in left leg (principal); I10 Essential (primary) hypertension; E11.9 Type 2 diabetes mellitus without complications; Z79.899 Other long term (current) drug therapy; Z60.2 Problems related to living alone; Z88.0 Allergy status to penicillin; Z88.1 Allergy status to other antibiotic agents
CPT/HCPCS: 36415; 71045-TC; 80048-TC; 84484-TC; 85025-TC; 93971-TC

== ENCOUNTER 2024-10-10 15:26 | Inpatient (IN) | payer MEDICARE, OTHER ==
[~2024-10-10] VITALS: Ht 160 cm; Wt 59.0 kg
[2024-10-10] MEDS ORDERED: HYDROCODONE/APAP 5/325MG TABLET ONE (16:31)
[2024-10-10] MEDS: HYDROCODONE/APAP 5/325MG TABLET PO ONE (16:33)
[2024-10-10 16:46] LABS: BASOPHILS # (AUTO) 0.1 K/uL (0.0-0.2); BASOPHILS % (AUTO) 0.8 % (0.0-2.0); EOSINOPHILS # (AUTO) 0.1 K/uL (0.0-0.7); EOSINOPHILS % (AUTO) 1.1 % (0.0-6.0); HEMATOCRIT 41 % (33-45); HEMOGLOBIN 13.9 g/dL (11.5-14.8); MEAN CORPUSCULAR HEMOGLOBIN 29 PG (26.0-33.0); MEAN CORPUSCULAR HGB CONC 34 g/dl (31.0-36.0); MEAN CORPUSCULAR VOLUME 86 fL (82-100); MONOCYTES # (AUTO) 1.1 K/uL (0.1-1.30); MONOCYTES % (AUTO) 16.1 % (2.0-12.0); NEUTROPHILS # (AUTO) 4.7 K/uL (1.8-8.9); PLATELET COUNT (AUTO) 226 K/uL (150-450); RED BLOOD CELL COUNT(AUTO) 4.77 MIL/uL (4.0-5.2); RED CELL DISTRIBUTION WIDTH 14.5 % (11.5-15.0); WHITE BLOOD COUNT (AUTO) 6.9 K/uL (4.3-11.0)
[2024-10-10 16:54] LABS: CALCIUM, SERUM 8.7 mg/dL (8.5-10.1); CREATININE 1.9 mg/dL (0.6-1.3); POTASSIUM 3.1 mmol/L (3.5-5.1)
[2024-10-10 17:15] LABS: BAND % (MANUAL) 3 % (0.0-5.0); EOSINOPHILS % (MANUAL) 1 % (0-4); LYMPHOCYTES % (MANUAL) 19 % (16-48); MONOCYTES % (MANUAL) 5 % (0-11.0); NEUTROPHILS % (MANUAL) 72 (42-76)
[2024-10-10 17:16] LABS: PLATELET ESTIMATE ADEQUATE
[2024-10-10] MEDS ORDERED: CLONIDINE HCL 0.1 MG TABLET PO SCH (17:30)
[2024-10-10] MEDS ORDERED: DEXTROSE 50%-WATER 50 ML DISP.SYRIN IV PRN (17:30)
[2024-10-10] MEDS ORDERED: ROSU10TA29 PO (17:39)
[2024-10-10] MEDS ORDERED: ROMO210S SQ (17:39)
[2024-10-10] MEDS ORDERED: EMPA25TA PO (17:39)
[2024-10-10] MEDS ORDERED: GLIP1TAB5 PO (17:39)
[2024-10-10] MEDS ORDERED: AMLO-358 PO (17:39)
[2024-10-10] MEDS ORDERED: EVOL140P3 SQ (17:39)
[2024-10-10] MEDS ORDERED: CARV6.252 PO (17:39)
[2024-10-10] MEDS ORDERED: FENO145T21 PO (17:39)
[2024-10-10] MEDS ORDERED: CLONIDINE HCL 0.1 MG TABLET PO PRN (18:00)
[2024-10-10] MEDS: POTASSIUM CHLORIDE 20 MEQ TAB.PRT.SR PO ONE (18:54)
[2024-10-10] MEDS: IV NS 0.9% 1,000 ML BAG IV ONE (18:55)
[2024-10-10 20:00] VITALS: BP 129/74; TEMP 97.9; O2SAT 94
[2024-10-10] MEDS: TRAMADOL HCL 50 MG TABLET PO PRN (20:17)
[2024-10-10] MEDS: BLOOD SUGAR DIAGNOSTIC 1 EACH STRIP IN SCH (21:11)
[2024-10-10] MEDS: INSULIN REGULAR, HUMAN 100 UNIT/ML 3 ML VIAL SQ PRN (21:17)
[2024-10-10] MEDS ORDERED: DOCUSATE SODIUM 200 MG PO SCH (22:00)
[2024-10-11] MEDS: IV NS 0.9% 1,000 ML IV PRN (04:34)
[2024-10-11 08:00] VITALS: BP 132/59; TEMP 97.7; O2SAT 96
[2024-10-11] MEDS ORDERED: Medication Not On Formulary EA (Icosapent Ethyl (Vascepa) 1 GM) PO SCH (09:00)
[2024-10-11] MEDS ORDERED: FENOFIBRATE 48 MG PO SCH (09:00)
[2024-10-11] MEDS ORDERED: Z GUARD REMEDY 4 OZ OINT TP PRN (09:00)
[2024-10-11] MEDS ORDERED: ACETAMINOPHEN 325 MG TABLET PO PRN (09:00)
[2024-10-11] MEDS ORDERED: AMLODIPINE BESYLATE 5 MG TABLET PO SCH ×2 (09:00)
[2024-10-11] MEDS ORDERED: ERGOCALCIFEROL (VITAMIN D 2) 50,000 UNIT CAPSULE PO SCH ×2 (09:00)
[2024-10-11] MEDS ORDERED: GLIMEPIRIDE 1 MG TABLET PO SCH ×2 (09:00)
[2024-10-11] MEDS ORDERED: MAG HYDROX/AL HYDROX/SIMETH 30 ML UDC PO PRN (09:00)
[2024-10-11] MEDS ORDERED: MAGNESIUM HYDROXIDE 30 ML UDC PO PRN (09:00)
[2024-10-11] MEDS: CARVEDILOL 6.25 MG TABLET PO SCH (09:58)
[2024-10-11] MEDS: ASPIRIN EC 81 MG TABLET.DR PO SCH (09:58)
[2024-10-11] MEDS: FENOFIBRATE NANOCRYS (145 MG) 145 MG TABLET PO SCH (09:59)
[2024-10-11] MEDS: PANTOPRAZOLE 40 MG TABLET.DR PO SCH (09:59)
[2024-10-11] MEDS: EMPAGLIFLOZIN 25 MG TABLET PO SCH (10:02)
[2024-10-11 13:28] LABS: CALCIUM, SERUM 8.1 mg/dL (8.5-10.1); CREATININE 1.4 mg/dL (0.6-1.3); POTASSIUM 2.9 mmol/L (3.5-5.1)
[2024-10-11 13:30] LABS: BASOPHILS % (AUTO) 0.5 % (0.0-2.0); EOSINOPHILS # (AUTO) 0.1 K/uL (0.0-0.7); EOSINOPHILS % (AUTO) 1.2 % (0.0-6.0); HEMATOCRIT 34 % (33-45); HEMOGLOBIN 12.1 g/dL (11.5-14.8); LYMPHOCYTES # (AUTO) 1.1 K/uL (0.8-4.8); LYMPHOCYTES % (AUTO) 21.4 % (20.0-44.0); MEAN CORPUSCULAR HEMOGLOBIN 30 PG (26.0-33.0); MEAN CORPUSCULAR HGB CONC 35 g/dl (31.0-36.0); MEAN CORPUSCULAR VOLUME 86 fL (82-100); MONOCYTES % (AUTO) 19.2 % (2.0-12.0); NEUTROPHILS % (AUTO) 57.7 % (43.0-81.0); PLATELET COUNT (AUTO) 204 K/uL (150-450); RED BLOOD CELL COUNT(AUTO) 3.99 MIL/uL (4.0-5.2); RED CELL DISTRIBUTION WIDTH 14.4 % (11.5-15.0); WHITE BLOOD COUNT (AUTO) 5.2 K/uL (4.3-11.0)
[2024-10-11] MEDS: ONDANSETRON HCL/PF 4 MG/2 ML VIAL IVP PRN (14:00)
[2024-10-11 14:11] LABS: EOSINOPHILS % (MANUAL) 3 % (0-4); LYMPHOCYTES % (MANUAL) 23 % (16-48); MONOCYTES % (MANUAL) 9 % (0-11.0); NEUTROPHILS % (MANUAL) 65 (42-76); PLATELET ESTIMATE ADEQUATE
[2024-10-11 14:12] LABS: ANISOCYTOSIS 1+
[2024-10-11 16:00] VITALS: BP 96/43; TEMP 98.4; O2SAT 94
[2024-10-11 20:00] VITALS: BP 99/41; TEMP 97.9; O2SAT 93
[2024-10-12 06:20] LABS: BASOPHILS % (AUTO) 0.7 % (0.0-2.0); EOSINOPHILS # (AUTO) 0.1 K/uL (0.0-0.7); EOSINOPHILS % (AUTO) 2.1 % (0.0-6.0); HEMATOCRIT 33 % (33-45); HEMOGLOBIN 11.2 g/dL (11.5-14.8); LYMPHOCYTES # (AUTO) 1.5 K/uL (0.8-4.8); LYMPHOCYTES % (AUTO) 30.5 % (20.0-44.0); MEAN CORPUSCULAR HEMOGLOBIN 30 PG (26.0-33.0); MEAN CORPUSCULAR HGB CONC 34 g/dl (31.0-36.0); MEAN CORPUSCULAR VOLUME 88 fL (82-100); MONOCYTES % (AUTO) 19.8 % (2.0-12.0); NEUTROPHILS # (AUTO) 2.3 K/uL (1.8-8.9); NEUTROPHILS % (AUTO) 46.9 % (43.0-81.0); PLATELET COUNT (AUTO) 185 K/uL (150-450); RED BLOOD CELL COUNT(AUTO) 3.72 MIL/uL (4.0-5.2); RED CELL DISTRIBUTION WIDTH 14.3 % (11.5-15.0)
[2024-10-12 06:32] LABS: APPEARANCE,URINE CLEAR (CLEAR); BILIRUBIN,URINE NEGATIVE (NEGATIVE); BLOOD, URINE 2+ Ery/uL (NEGATIVE); COLOR,URINE YELLOW (YELLOW); KETONES,URINE NEGATIVE (NEGATIVE); LEUKOCYTE ESTERASE ,URINE NEGATIVE (NEGATIVE); NITRITE, URINE NEGATIVE (NEGATIVE); PROTEIN,URINE NEGATIVE (NEGATIVE); UGLUCOSE 3+ mg/dL (NEGATIVE); UROBILINOGEN,URINE 0.2 EU/dL (0.2)
[2024-10-12 06:33] LABS: ADD URINE CULTURE NO; BACTERIA,URINE Rare /HPF (None Seen); EOSINOPHIL,URINE None Seen; SQUAMOUS EPITHELIAL CELL,UR Few /HPF (None Seen)
[2024-10-12 06:39] LABS: CREATININE, URINE 43.2 MG/DL (30.0-125.0); URINE TOTAL PROTEIN 27.7 mg/dL (0-11.9)
[2024-10-12 06:42] LABS: ALBUMIN 2.6 g/dL (3.4-5.0); BILIRUBIN,TOTAL 0.3 mg/dL (0.2-1.0); CALCIUM, SERUM 7.8 mg/dL (8.5-10.1); MAGNESIUM 2.3 mg/dL (1.8-2.4); PHOSPHORUS 2.7 mg/dL (2.5-4.9); POTASSIUM 3.1 mmol/L (3.5-5.1); TOTAL PROTEIN, SERUM 6.4 g/dL (6.4-8.2)
[2024-10-12 08:00] VITALS: BP 111/56; TEMP 97.9; O2SAT 92
[2024-10-12] MEDS: POTASSIUM CHLORIDE 20 MEQ TAB.PRT.SR PO SCH (10:27)
[2024-10-12 11:30] LABS: EOSINOPHILS % (MANUAL) 2 % (0-4); LYMPHOCYTES % (MANUAL) 19 % (16-48); MONOCYTES % (MANUAL) 3 % (0-11.0); NEUTROPHILS % (MANUAL) 26 (42-76); PLATELET ESTIMATE ADEQUATE
[2024-10-12 11:31] LABS: ANISOCYTOSIS 1+
[2024-10-12 16:00] VITALS: BP 102/45; TEMP 97.5; O2SAT 97
[2024-10-12 20:00] VITALS: BP 124/50; TEMP 98.6; O2SAT 95
[2024-10-12 20:52] VITALS: BP 124/50; TEMP 98.6; O2SAT 95
[2024-10-13 07:12] LABS: PTH, INTACT 105 pg/mL (15-65)
[2024-10-13 07:36] LABS: CREATININE 0.8 mg/dL (0.6-1.3); POTASSIUM 3.2 mmol/L (3.5-5.1)
[2024-10-13 08:00] VITALS: BP 134/54; TEMP 98.6; O2SAT 96
[2024-10-13] MEDS: TRAMADOL HCL 50 MG TABLET PO ONE (10:08)
[2024-10-13] MEDS: POTASSIUM CHLORIDE 20 MEQ TAB.PRT.SR PO SCH (10:08)
[2024-10-13] MEDS: HYDROCODONE/APAP 10/325MG TABLET PO PRN (15:27)
[2024-10-13 16:18] VITALS: BP 154/66; TEMP 97.9; O2SAT 93
[2024-10-13 20:00] VITALS: BP 154/70; TEMP 98.1; O2SAT 96
[2024-10-13 21:17] VITALS: BP 154/70; TEMP 98.1; O2SAT 96
[2024-10-14 07:50] LABS: CALCIUM, SERUM 8.2 mg/dL (8.5-10.1); CREATININE 0.7 mg/dL (0.6-1.3); POTASSIUM 3.3 mmol/L (3.5-5.1)
[2024-10-14] MEDS ORDERED: CARV6.252 PO (08:56)
[2024-10-14] MEDS ORDERED: ACET325T53 PO (08:56)
[2024-10-14] MEDS ORDERED: NORM10004 IV (08:56)
[2024-10-14] MEDS ORDERED: TRAM50TA2 PO (08:56)
[2024-10-14] MEDS ORDERED: Aspirin Ec PO (08:56)
[2024-10-14] MEDS ORDERED: INSU100V28 SQ (08:56)
[2024-10-14] MEDS ORDERED: LOSA25TA3 PO (08:56)
[2024-10-14] MEDS ORDERED: Blood Sugar Diagnostic IN (08:56)
[2024-10-14 09:01] VITALS: BP 150/65; TEMP 98.8; O2SAT 97
[2024-10-14] MEDS: POTASSIUM CHLORIDE 20 MEQ TAB.PRT.SR PO SCH (10:54)
== END 2024-10-14 11:50 | DRG 557 ==
LOC: ER 15:30 → MED 18:23
PROVIDERS: ADMIT Nurse Practitioner Acute Care; ATTEND Nurse Practitioner Acute Care
DX: M62.82 Rhabdomyolysis (principal); N17.0 Acute kidney failure with tubular necrosis; E87.1 Hypo-osmolality and hyponatremia; A09 Infectious gastroenteritis and colitis, unspecified; E86.1 Hypovolemia; E87.6 Hypokalemia; R29.6 Repeated falls; M81.0 Age-related osteoporosis without current pathological fracture; I10 Essential (primary) hypertension; E11.9 Type 2 diabetes mellitus without complications; Z88.0 Allergy status to penicillin; Z88.1 Allergy status to other antibiotic agents; Z79.84 Long term (current) use of oral hypoglycemic drugs; Z79.899 Other long term (current) drug therapy; K76.0 Fatty (change of) liver, not elsewhere classified; M89.8X9 Other specified disorders of bone, unspecified site; S00.03XA Contusion of scalp, initial encounter; W01.0XXA Fall on same level from slipping, tripping and stumbling without subsequent striking against object, initial encounter; Y92.000 Kitchen of unspecified non-institutional (private) residence as the place of occurrence of the external cause; E78.5 Hyperlipidemia, unspecified; E86.9 Volume depletion, unspecified; R26.89 Other abnormalities of gait and mobility; K52.89 Other specified noninfective gastroenteritis and colitis; D64.9 Anemia, unspecified
CPT/HCPCS: 36415; 70450-TC; 71045-TC; 72125-TC; 73080-TC; 73564-TC; 76770-TC; 80048-TC; 80053-TC; 80061-TC; 81001; 82550-TC; 82553; 82570-TC; 82962-TC; 83735-TC; 83970; 84100-TC; 84155; 84165; 84300-TC; 84484-TC; 85025-TC; 97110-TC; 97116-TC; 97530-TC; A4223; G0378; J1815; J2405; J7030

== ENCOUNTER 2024-12-22 20:52 | Emergency (ER) | payer MEDICARE, OTHER ==
[~2024-12-22] VITALS: Ht 147.3 cm; Wt 59.0 kg
[~2024-12-22 20:52] MED LIST changes: +ACET325T53 PO; -AMLO-212 PO; -ASPI-1420 PO; +Aspirin Ec PO; +Blood Sugar Diagnostic IN; +CARV6.252 PO; -CIPR500T5 PO; -CLON0.1T PO; -DOCU100T28 PO; +EMPA25TA PO; -ERGO500040 PO; +FENO145T21 PO; -FENOFIBRATE PO; -GLIM1TAB18 PO; -ICOS1CAP PO; +INSU100V28 SQ; -KETO10TA2 PO; -LEVO500T90 PO; +LOSA25TA3 PO; -METF-440 PO; -METR500T PO; -NEBI10TA2 PO; +NORM10004 IV; -OLME1TAB22 PO; -ROSU40TA PO; +TRAM50TA2 PO
[2024-12-22 22:26] LABS: BASOPHILS # (AUTO) 0.1 K/uL (0.0-0.2); BASOPHILS % (AUTO) 1.2 % (0.0-2.0); EOSINOPHILS # (AUTO) 0.6 K/uL (0.0-0.7); EOSINOPHILS % (AUTO) 9.2 % (0.0-6.0); HEMATOCRIT 36 % (33-45); HEMOGLOBIN 11.7 g/dL (11.5-14.8); LYMPHOCYTES # (AUTO) 1.9 K/uL (0.8-4.8); LYMPHOCYTES % (AUTO) 30.2 % (20.0-44.0); MEAN CORPUSCULAR HEMOGLOBIN 29 PG (26.0-33.0); MEAN CORPUSCULAR HGB CONC 33 g/dl (31.0-36.0); MEAN CORPUSCULAR VOLUME 87 fL (82-100); MONOCYTES # (AUTO) 0.4 K/uL (0.1-1.30); NEUTROPHILS # (AUTO) 3.4 K/uL (1.8-8.9); NEUTROPHILS % (AUTO) 52.4 % (43.0-81.0); PLATELET COUNT (AUTO) 232 K/uL (150-450); RED BLOOD CELL COUNT(AUTO) 4.08 MIL/uL (4.0-5.2); RED CELL DISTRIBUTION WIDTH 14.5 % (11.5-15.0); WHITE BLOOD COUNT (AUTO) 6.4 K/uL (4.3-11.0)
[2024-12-22] MEDS ORDERED: LIDOCAINE 5% (PATCH) 1 EA PATCH TP ONE (22:49)
[2024-12-22] MEDS ORDERED: CYCLOBENZAPRINE 10 MG TABLET ONE (22:49)
[2024-12-22] MEDS ORDERED: CARVEDILOL 6.25 MG TABLET ONE (22:49)
[2024-12-22] MEDS ORDERED: KETOROLAC TROMETHAMINE 15 MG/ML VIAL ONE (22:49)
[2024-12-22] MEDS: CYCLOBENZAPRINE 10 MG TABLET PO ONE (22:50)
[2024-12-22] MEDS ORDERED: LOSARTAN POTASSIUM 25 MG TABLET ONE (22:50)
[2024-12-22] MEDS: CARVEDILOL 6.25 MG TABLET PO ONE (22:50)
[2024-12-22] MEDS: LOSARTAN POTASSIUM 25 MG TABLET PO ONE (22:50)
[2024-12-22] MEDS: LIDOCAINE 5% (PATCH) 1 EA PATCH TP SCH (22:55)
[2024-12-22 23:02] LABS: ALANINE AMINOTRANSFERASE 41 U/L (12-78); ALBUMIN 3.5 g/dL (3.4-5.0); ALKALINE PHOSPHATASE 87 U/L (46-116); ASPARTATE AMINOTRANSFERASE 28 U/L (15-37); BILIRUBIN,DIRECT 0.1 mg/dL (0.0-0.2); BILIRUBIN,TOTAL 0.3 mg/dL (0.2-1.0); CALCIUM, SERUM 8.9 mg/dL (8.5-10.1); CARBON DIOXIDE 25 mmol/L (21-32); CHLORIDE 104 mmol/L (98-107); CREATININE 0.8 mg/dL (0.6-1.3); GLUCOSE 163 mg/dL (74-106); LIPASE 100 U/L (16-77); POTASSIUM 3.5 mmol/L (3.5-5.1); SODIUM SERUM 141 mmol/L (136-145); TOTAL PROTEIN, SERUM 7.7 g/dL (6.4-8.2); UREA NITROGEN, BLOOD 22 mg/dL (7-18)
[2024-12-22] MEDS: KETOROLAC TROMETHAMINE 15 MG/ML VIAL IV ONE (23:05)
[2024-12-22 23:52] LABS: APPEARANCE,URINE CLEAR (CLEAR); BILIRUBIN,URINE NEGATIVE (NEGATIVE); BLOOD, URINE NEGATIVE Ery/uL (NEGATIVE); COLOR,URINE YELLOW (YELLOW); KETONES,URINE NEGATIVE (NEGATIVE); LEUKOCYTE ESTERASE ,URINE NEGATIVE (NEGATIVE); NITRITE, URINE NEGATIVE (NEGATIVE); PROTEIN,URINE NEGATIVE (NEGATIVE); UGLUCOSE NEGATIVE (NEGATIVE); UROBILINOGEN,URINE 0.2 EU/dL (0.2)
[2024-12-22] MEDS ORDERED: HYDR-4209 PO (23:53)
[2024-12-23 00:20] VITALS: BP 145/85; TEMP 98; O2SAT 95
== END 2024-12-23 00:21 | disposition home or self-care (01) ==
LOC: ER 20:54
DX: S32.038A Other fracture of third lumbar vertebra, initial encounter for closed fracture (principal); S32.048A Other fracture of fourth lumbar vertebra, initial encounter for closed fracture; M25.521 Pain in right elbow; M54.6 Pain in thoracic spine; R51.9 Headache, unspecified; R53.1 Weakness; E11.9 Type 2 diabetes mellitus without complications; I10 Essential (primary) hypertension; Z79.899 Other long term (current) drug therapy; Z88.0 Allergy status to penicillin; Z79.4 Long term (current) use of insulin; Z79.82 Long term (current) use of aspirin; Z88.1 Allergy status to other antibiotic agents; Z60.2 Problems related to living alone; Z86.79 Personal history of other diseases of the circulatory system; W18.39XA Other fall on same level, initial encounter; Y93.89 Activity, other specified; Y92.89 Other specified places as the place of occurrence of the external cause; Y99.8 Other external cause status
CPT/HCPCS: 99285; 70450; 96374; 93005; 74176; 85025; 80048; 83690; 80076; 81003; 36415; 84484; J1885